=== PATIENT | female | born 1955 | race Two or more races ===

== ENCOUNTER 2022-10-04 11:53 | Emergency (ER) | payer MEDICARE ==
[2022-10-04 12:12] VITALS: BP 135/83; PULSE 103; RESP 18; TEMP 100.2; BMI 18.0
[2022-10-04] MEDS ORDERED: ACETAMINOPHEN 500 MG TABLET (FP) PO ONE (13:06)
== END 2022-10-04 14:17 | disposition home or self-care (01) ==
LOC: JER 11:53
DX: U07.1 COVID-19 (principal)
CPT/HCPCS: 0241U-QW; 71046-TC-FY; 99284-25